=== PATIENT | male | born 1995 | race Two or more races ===

== ENCOUNTER 2023-03-10 13:53 | Emergency (ER) | payer SELFPAY ==
[~2023-03-10] VITALS: Ht 177.8 cm; Wt 65.7 kg
[2023-03-10 15:08] VITALS: BP 131/90; PULSE 81; RESP 16; TEMP 98.2; O2SAT 97
[2023-03-10] MEDS: HYDROcodone-ACET 5/325MG TAB PO ONE ×2 (15:42→15:50)
[2023-03-10] MEDS ORDERED: HYDR-4902 PO (15:46)
== END 2023-03-10 15:49 | disposition home or self-care (01) ==
LOC: ER 13:53
DX: S63.610A Unspecified sprain of right index finger, initial encounter (principal); W18.39XA Other fall on same level, initial encounter; Y93.89 Activity, other specified; Y92.89 Other specified places as the place of occurrence of the external cause; Y99.8 Other external cause status
CPT/HCPCS: 29130; 73130